=== PATIENT | female | born 1965 | race Caucasian/White ===

== ENCOUNTER → 2016-11-08 | Outpatient (CLI) | payer MEDICARE, MEDICAID ==
[~2016-11-08] MED LIST: ALPR-475 PO; ASCO10004 PO; B50 COMPLEX PO; CALC1CAP8 PO; CARI350T PO; CHOL500015 PO; DOCU100T6 PO; LACT1CAP40 PO; LAMO200T PO; LEVE750T8 PO; METH5TAB2 PO; MULT-750 PO; OLAN20TA7 PO; OXYC-229 PO; RED600TA PO; ZOLP-413 PO; [UNRECOGNIZED DRUG - OTHER] PO
== END | disposition home or self-care (01) ==
LOC: STAR 13:04
PROVIDERS: ATTEND Urology
DX: Z01.818 Encounter for other preprocedural examination (principal); C64.2 Malignant neoplasm of left kidney, except renal pelvis; F41.9 Anxiety disorder, unspecified; F32.9 Major depressive disorder, single episode, unspecified
CPT/HCPCS: 81003; 87086; 93005

== ENCOUNTER 2016-11-16 09:03 | Inpatient (IN) | payer MEDICARE, MEDICAID ==
[2016-11-08 13:28] VITALS: BP 108/75
[~2016-11-16] VITALS: Ht 165.1 cm; Wt 63.7 kg
[2016-11-16] MEDS ORDERED: LACTATED RINGERS 1,000 ML IV SCH ×2 (09:39→09:59)
[2016-11-16] MEDS ORDERED: LIDOCAINE 1%, 2ML SQ PRN (10:00)
[2016-11-16] MEDS ORDERED: LIDOCAINE 1%, 2ML ONE (10:05)
[2016-11-16] MEDS ORDERED: EPINEPHRINE 1 MG/ML, 1ML ONE (10:05)
[2016-11-16] MEDS ORDERED: BUPIVACAINE/PF 0.25% ONE (10:05)
[2016-11-16] MEDS ORDERED: THROMBIN 5,000 UNIT VIAL TP ONE (10:06)
[2016-11-16] MEDS ORDERED: CEFAZOLIN 1,000 MG ONE (10:18)
[2016-11-16] MEDS ORDERED: PROPOFOL 10 MG/ML, 20ML ONE (10:18)
[2016-11-16] MEDS ORDERED: DEXAMETHASONE 4 MG/ML, 1ML ONE (10:18)
[2016-11-16] MEDS ORDERED: SUCCINYLCHOLINE 20 MG/ML, 10ML ONE (10:18)
[2016-11-16] MEDS ORDERED: GLYCOPYRROLATE 0.2MG/1ML ONE (10:18)
[2016-11-16] MEDS ORDERED: NEOSTIGMINE 1 MG/ML, 10ML ONE (10:18)
[2016-11-16] MEDS ORDERED: ROCURONIUM 10 MG/ML ONE (10:18)
[2016-11-16] MEDS ORDERED: FENTANYL PF 250 MCG/5ML ONE ×2 (10:23→14:49)
[2016-11-16] MEDS ORDERED: MIDAZOLAM 1 MG/ML, 2ML ONE (10:24)
[2016-11-16] MEDS ORDERED: hydrALAzine 20 MG/ML, 1ML IV PRN (13:00)
[2016-11-16] MEDS ORDERED: OXYcodone 5 MG/5 ML ORAL.SOL UDC PO PRN (13:00)
[2016-11-16] MEDS ORDERED: LABETALOL 5MG/ML, 20ML IV PRN (13:00)
[2016-11-16] MEDS ORDERED: METOCLOPRAMIDE 5 MG/ML, 2ML IV PRN (13:00)
[2016-11-16] MEDS ORDERED: ONDANSETRON 2MG/ML, 2ML IVPush PRN (13:00)
[2016-11-16] MEDS ORDERED: ACETAMINOPHEN 325 MG TABLET PO PRN (13:00)
[2016-11-16] MEDS ORDERED: FENTANYL PF 100 MCG/2ML ONE ×2 (15:11→16:03)
[2016-11-16] MEDS ORDERED: HYDROmorphone 1 MG/ML, 1ML ONE (15:11)
[2016-11-16] MEDS: HYDROmorphone 1 MG/ML, 1ML IV PRN ×2 (15:23→15:33)
[2016-11-16] MEDS: FENTANYL PF 100 MCG/2ML IV PRN ×4 (15:48→16:15)
[2016-11-16] MEDS ORDERED: ACETAMINOPHEN 650 MG/20.3 ML UDC ONE (16:03)
[2016-11-16] MEDS ORDERED: OXYcodone 5 MG/5 ML ORAL.SOL UDC ONE (16:03)
[2016-11-16] MEDS ORDERED: ONDANSETRON 2MG/ML, 2ML IV PRN (17:30)
[2016-11-16] MEDS ORDERED: SODIUM CHLORIDE 0.9% 500 ML IV SCH (17:30)
[2016-11-16] MEDS: D5%-0.45% NACL 1,000 ML IV SCH (18:19)
[2016-11-16 19:24] VITALS: BP 126/80
[2016-11-16] MEDS: CEFAZOLIN PMX 1GM/50ML 50 ML IV SCH (19:46)
[2016-11-16] MEDS: ZOLPIDEM 5MG TABLET PO SCH (21:00)
[2016-11-16] MEDS: LACTOBACILLUS CHEW TABLET PO SCH (22:27)
[2016-11-16] MEDS: OLANZAPINE 10 MG TABLET PO SCH (22:27)
[2016-11-16] MEDS: LAMOTRIGINE 200 MG TABLET PO SCH (22:28)
[2016-11-16] MEDS: LEVETIRACETAM 500 MG TABLET PO SCH (22:28)
[2016-11-16] MEDS: METHADONE 5 MG TABLET PO SCH (22:28)
[2016-11-16] MEDS: CARISOPRODOL 350 MG TABLET PO SCH (22:28)
[2016-11-16] MEDS: FAMOTIDINE 20 MG/2 ML IVPush SCH (22:29)
[2016-11-16 23:12] VITALS: BP 116/78
[2016-11-17] MEDS: D5%-0.45% NACL 1,000 ML IV SCH ×2 (02:57→11:36)
[2016-11-17] MEDS: CEFAZOLIN PMX 1GM/50ML 50 ML IV SCH (02:58)
[2016-11-17 03:05] VITALS: BP 115/73
[2016-11-17] MEDS ORDERED: CEFAZOLIN 1,000 MG in SODIUM CHLORIDE 0.9% 50 ML IV SCH (03:30)
[2016-11-17 06:21] LABS: HEMATOCRIT 33.7 % (34.6-47.8); HEMOGLOBIN 11.4 g/dL (11.7-16.4); WHITE BLOOD COUNT 4.7 x10^3/uL (3.4-10)
[2016-11-17 06:33] LABS: BLOOD UREA NITROGEN 4 mg/dL (7-18)
[2016-11-17 07:22] VITALS: BP 104/69
[2016-11-17] MEDS: CARISOPRODOL 350 MG TABLET PO SCH ×3 (08:22→21:47)
[2016-11-17] MEDS: DOCUSATE 100 MG CAPSULE PO SCH (08:22)
[2016-11-17] MEDS: LAMOTRIGINE 200 MG TABLET PO SCH ×2 (08:22→21:45)
[2016-11-17] MEDS: LEVETIRACETAM 500 MG TABLET PO SCH ×2 (08:22→21:47)
[2016-11-17] MEDS: LACTOBACILLUS CHEW TABLET PO SCH ×2 (08:23→21:46)
[2016-11-17] MEDS: FAMOTIDINE 20 MG/2 ML IVPush SCH ×2 (08:23→21:45)
[2016-11-17] MEDS: METHADONE 5 MG TABLET PO SCH ×2 (08:28→21:46)
[2016-11-17 12:48] VITALS: BP 112/68
[2016-11-17] MEDS: POTASSIUM CHLORIDE 20 MEQ in D5%-0.45% NACL 1,000 ML IV SCH ×2 (14:53→23:28)
[2016-11-17 19:12] VITALS: BP 118/81
[2016-11-17] MEDS: ZOLPIDEM 5MG TABLET PO SCH (21:46)
[2016-11-17] MEDS: OLANZAPINE 10 MG TABLET PO SCH (21:47)
[2016-11-18 00:15] VITALS: BP 116/79
[2016-11-18 05:53] LABS: BLOOD UREA NITROGEN < 1 mg/dL (7-18)
[2016-11-18 07:21] VITALS: BP 124/82
[2016-11-18] MEDS: POTASSIUM CHLORIDE 20 MEQ in D5%-0.45% NACL 1,000 ML IV SCH ×2 (08:09→16:14)
[2016-11-18] MEDS: LEVETIRACETAM 500 MG TABLET PO SCH ×2 (09:16→20:12)
[2016-11-18] MEDS: DOCUSATE 100 MG CAPSULE PO SCH (09:16)
[2016-11-18] MEDS: LAMOTRIGINE 200 MG TABLET PO SCH ×2 (09:16→20:11)
[2016-11-18] MEDS: FAMOTIDINE 20 MG/2 ML IVPush SCH ×2 (09:16→20:12)
[2016-11-18] MEDS: CARISOPRODOL 350 MG TABLET PO SCH ×3 (09:16→20:11)
[2016-11-18] MEDS: LACTOBACILLUS CHEW TABLET PO SCH ×2 (09:16→20:11)
[2016-11-18] MEDS: METHADONE 5 MG TABLET PO SCH ×2 (09:16→20:21)
[2016-11-18] MEDS: OXYcodone/APAP 10/325MG TABLET PO PRN ×2 (10:02→14:32)
[2016-11-18 14:20] VITALS: BP 103/61
[2016-11-18] MEDS ORDERED: OXYcodone/APAP 5/325MG TABLET PO PRN (17:00)
[2016-11-18] MEDS: OXYcodone/APAP 5/325MG TABLET PO PRN ×2 (18:32→22:29)
[2016-11-18 18:43] VITALS: BP 117/69
[2016-11-18] MEDS: ZOLPIDEM 5MG TABLET PO SCH (20:11)
[2016-11-18] MEDS: OLANZAPINE 10 MG TABLET PO SCH (20:11)
[2016-11-19] MEDS: POTASSIUM CHLORIDE 20 MEQ in D5%-0.45% NACL 1,000 ML IV SCH ×2 (00:13→09:22)
[2016-11-19 01:10] VITALS: BP 95/60
[2016-11-19] MEDS: OXYcodone/APAP 5/325MG TABLET PO PRN ×2 (02:34→07:32)
[2016-11-19 06:27] LABS: HEMATOCRIT 29.6 % (34.6-47.8); WHITE BLOOD COUNT 3.8 x10^3/uL (3.4-10)
[2016-11-19 06:38] LABS: BLOOD UREA NITROGEN 3 mg/dL (7-18)
[2016-11-19 07:19] VITALS: BP 96/71
[2016-11-19] MEDS: FAMOTIDINE 20 MG/2 ML IVPush SCH (08:58)
[2016-11-19] MEDS: CARISOPRODOL 350 MG TABLET PO SCH (08:59)
[2016-11-19] MEDS: LAMOTRIGINE 200 MG TABLET PO SCH (08:59)
[2016-11-19] MEDS: LEVETIRACETAM 500 MG TABLET PO SCH (08:59)
[2016-11-19] MEDS: DOCUSATE 100 MG CAPSULE PO SCH (08:59)
[2016-11-19] MEDS: METHADONE 5 MG TABLET PO SCH (09:20)
[2016-11-19] MEDS: LACTOBACILLUS CHEW TABLET PO SCH (09:20)
[2016-11-19 10:41] VITALS: BP 107/68
[2016-11-19] MEDS ORDERED: OXYC-229 PO (11:27)
[2016-11-19] MEDS ORDERED: METH5TAB2 PO (11:27)
== END 2016-11-19 11:46 | disposition home or self-care (01) | DRG 657 ==
LOC: ORIP 09:03 → 4NOR 17:15 → DCLOUNGE 11-19 11:20
PROVIDERS: ADMIT Urology; ATTEND Urology
PROC: 8E0W4CZ Robotic Assisted Procedure of Trunk Region, Percutaneous Endoscopic Approach (ICD-10-PCS; 2016-11-16)
PROC: 0TT14ZZ Resection of Left Kidney, Percutaneous Endoscopic Approach (ICD-10-PCS; principal; 2016-11-16 12:00)
DX: C64.2 Malignant neoplasm of left kidney, except renal pelvis (principal); E87.1 Hypo-osmolality and hyponatremia; F41.9 Anxiety disorder, unspecified; F32.9 Major depressive disorder, single episode, unspecified; Z87.891 Personal history of nicotine dependence
CPT/HCPCS: 36415; 71010; 80048; 85025; 86850; 86900; 88307; 88342; J0171; J0690; J1100; J1170; J2250; J2270; J2704; J2710; J3010; J3480; J3490; C1760; G0461; J0330; S0028

== ENCOUNTER 2017-02-01 15:39 | Emergency (ER) | payer MEDICARE, MEDICAID ==
[~2017-02-01] VITALS: Ht 165.1 cm; Wt 65.5 kg
[~2017-02-01 15:39] MED LIST changes: -OXYC-229 PO; +OXYC-307 PO
[2017-02-01 16:51] LABS: HEMATOCRIT 37.5 % (34.6-47.8); HEMOGLOBIN 12.7 g/dL (11.7-16.4); WHITE BLOOD COUNT 3.6 x10^3/uL (3.4-10)
[2017-02-01 16:56] LABS: ASPARTATE AMINO TRANSFERASE 17 U/L (15-37); BLOOD UREA NITROGEN 8 mg/dL (7-18)
[2017-02-01] MEDS ORDERED: OXYcodone/APAP 10/325MG TABLET ONE (17:10)
[2017-02-01] MEDS ORDERED: OXYcodone/APAP 10/325MG TABLET PO ONE (17:30)
[2017-02-01] MEDS ORDERED: ONDANSETRON 2MG/ML, 2ML ONE (17:54)
[2017-02-01] MEDS ORDERED: FAMOTIDINE 20 MG/2 ML ONE (17:55)
[2017-02-01] MEDS ORDERED: ONDANSETRON 2MG/ML, 2ML IVPush ONE (18:30)
[2017-02-01] MEDS ORDERED: FAMOTIDINE 20 MG/2 ML IVPush ONE (18:30)
[2017-02-01 19:11] VITALS: BP 100/64
== END 2017-02-01 19:43 | disposition home or self-care (01) ==
LOC: ED 17:10
DX: R11.2 Nausea with vomiting, unspecified (principal); R19.7 Diarrhea, unspecified; G40.909 Epilepsy, unspecified, not intractable, without status epilepticus; Z85.9 Personal history of malignant neoplasm, unspecified; Z79.899 Other long term (current) drug therapy
CPT/HCPCS: 36415; 74176; 80053; 81001; 83690; 85025; 87086; 96374; 96375; 99285; J2405; S0028

== ENCOUNTER → 2017-05-10 | Outpatient (CLI) | payer MEDICARE, MEDICAID ==
[~2017-05-10] MED LIST changes: -LAMO200T PO; +LAMO200T2 PO
== END | disposition home or self-care (01) ==
LOC: CFH 13:26
PROVIDERS: ATTEND Nurse Practitioner Family
DX: K86.89 Other specified diseases of pancreas (principal); K83.8 Other specified diseases of biliary tract; Z90.5 Acquired absence of kidney; K76.89 Other specified diseases of liver
CPT/HCPCS: 74181

== ENCOUNTER 2017-05-24 18:13 | Inpatient (IN) | payer MEDICARE, MEDICAID ==
[~2017-05-24] VITALS: Ht 165.1 cm; Wt 59.9 kg
[2017-05-24] MEDS ORDERED: SODIUM CHLORIDE FLUSH 10ML SYR IVF ONE (19:00)
[2017-05-24] MEDS ORDERED: SODIUM CHLORIDE 0.9% 1,000ML IVBOLUS ONE (19:00)
[2017-05-24 19:16] LABS: ALANINE AMINOTRANSFERASE 18 U/L (12-78); ALBUMIN 3.2 g/dL (3.4-5.0); ANION GAP 11 mmol/L (5-15); CALCIUM 7.7 mg/dL (8.5-10.1); CHLORIDE 91 mmol/L (98-107); CREATININE 0.88 mg/dL (0.55-1.02)
[2017-05-24 19:18] LABS: ALKALINE PHOSPHATASE 87 U/L (45-117); BILIRUBIN,TOTAL 0.3 mg/dL (0.2-1.0); SALICYLATE LEVEL < 1.7 mg/dL (2.8-20.0); TOTAL PROTEIN 5.7 g/dL (6.4-8.2); TROPONIN I < 0.015 ng/mL (0.000-0.045)
[2017-05-24 19:19] LABS: ACETAMINOPHEN < 2 mcg/mL (10-30)
[2017-05-24 19:39] LABS: BASOPHILS # (AUTO) 0.01 x10^3/uL (0-0.1); BASOPHILS % (AUTO) 0 % (0-1); EOSINOPHILS # (AUTO) 0.03 x10^3/uL (0-0.4); EOSINOPHILS % (AUTO) 1 % (1-7); LYMPHOCYTES # (AUTO) 1.49 x10^3/uL (1-3.4); LYMPHOCYTES % (AUTO) 30 % (22-44); MD NO; MEAN CORPUSCULAR HEMOGLOBIN 33.4 pg (27.0-34.8); MEAN CORPUSCULAR VOLUME 98.2 fL (80-100); MEAN PLATELET VOLUME 8.3 fL (7.4-10.4); MONOCYTES # (AUTO) 0.26 x10^3/uL (0.2-0.8); MONOCYTES % (AUTO) 5 % (2-9); NEUTROPHILS # (AUTO) 3.15 x10^3/uL (1.8-6.8); NEUTROPHILS % (AUTO) 64 % (42-75); PLATELET COUNT 240 x10^3/uL (130-400); RED BLOOD COUNT 3.42 x10^6/uL (3.82-5.3); RED CELL DISTRIBUTION WIDTH 14.5 % (9.6-15.2)
[2017-05-24 19:43] LABS: MICROSCOPIC NOT IND
[2017-05-24 19:52] LABS: CULTURE INDICATED? NO
[2017-05-24 20:00] LABS: AMPHETAMINE SCREEN, URINE Negative (Negative); BARBITURATE SCREEN, URINE Negative (Negative); BENZODIAZEPINE SCREEN, URINE Negative (Negative); CANNABINOID SCREEN, URINE Negative (Negative); COCAINE SCREEN, URINE Negative (Negative); METHADONE SCREEN, URINE Negative (Negative); OPIATE SCREEN, URINE Negative (Negative)
[2017-05-24] MEDS: POTASSIUM CHLORIDE 20 MEQ TAB.ER.PRT PO ONE ×2 (20:24→20:42)
[2017-05-24] MEDS ORDERED: POTASSIUM CHLORIDE 20 MEQ TAB.ER.PRT ONE (20:38)
[2017-05-24] MEDS ORDERED: LEVETIRACETAM 100 MG/ML ORAL SOL PO SCH (21:00)
[2017-05-24] MEDS ORDERED: ACETAMINOPHEN 325 MG TABLET PO PRN (21:00)
[2017-05-24] MEDS ORDERED: DOCUSATE 100 MG CAPSULE PO PRN (21:00)
[2017-05-24] MEDS ORDERED: LEVETIRACETAM 500 MG TABLET PO SCH (21:00)
[2017-05-24] MEDS ORDERED: ENOXAPARIN 40 MG/0.4 ML SQ SCH (21:00)
[2017-05-24] MEDS ORDERED: ONDANSETRON 2MG/ML, 2ML IVPush PRN (21:00)
[2017-05-24] MEDS ORDERED: LEVETIRACETAM 1500 MG PO SCH (21:00)
[2017-05-24] MEDS ORDERED: POLYETHYLENE GLYCOL 17 GM PACKET PO PRN (21:00)
[2017-05-25] MEDS: NS + 20MEQ KCL 1,000 ML IV SCH ×2 (00:13→08:00)
[2017-05-25 00:16] VITALS: BP 100/68
[2017-05-25 01:21] VITALS: BP 102/69
[2017-05-25 05:08] LABS: ANION GAP 7 mmol/L (5-15); CALCIUM 7.8 mg/dL (8.5-10.1); CHLORIDE 104 mmol/L (98-107); CREATININE 0.74 mg/dL (0.55-1.02)
[2017-05-25 07:55] VITALS: BP 114/78
[2017-05-25] MEDS ORDERED: LEVETIRACETAM 500 MG TABLET PO SCH (09:00)
[2017-05-25] MEDS ORDERED: SENNA/DOCUSATE TABLET PO SCH (09:00)
[2017-05-25] MEDS ORDERED: MULTIVITAMIN 1 TABLET PO SCH (09:00)
== END 2017-05-25 08:56 | disposition home or self-care (01) | DRG 100 ==
LOC: ED 19:00 → EDIP 20:38 → 4NOR 22:20
PROVIDERS: ADMIT Family Medicine; ATTEND Family Medicine
PROC: 0T9B70Z Drainage of Bladder with Drainage Device, Via Natural or Artificial Opening (ICD-10-PCS; principal; 2017-05-24)
DX: G40.909 Epilepsy, unspecified, not intractable, without status epilepticus (principal); G92 Toxic encephalopathy; E44.0 Moderate protein-calorie malnutrition; F11.20 Opioid dependence, uncomplicated; E87.1 Hypo-osmolality and hyponatremia; R91.1 Solitary pulmonary nodule; E87.6 Hypokalemia; Z79.899 Other long term (current) drug therapy; Z85.528 Personal history of other malignant neoplasm of kidney; Z90.5 Acquired absence of kidney; Z68.22 Body mass index [BMI] 22.0-22.9, adult
CPT/HCPCS: 36415; 70450; 71045; 80048; 80053; 80307; 80329; 81003; 82140; 83605; 83690; 83735; 84484; 85025; 85730; 87040; 93005; 96360; J1650; J3480; G0480; J7030

== ENCOUNTER → 2017-06-11 | Outpatient (CLI) | payer MEDICARE, MEDICAID ==
[2017-06-11 14:29] LABS: BASOPHILS # (AUTO) 0.02 x10^3/uL (0-0.1); BASOPHILS % (AUTO) 0 % (0-1); EOSINOPHILS # (AUTO) 0.06 x10^3/uL (0-0.4); EOSINOPHILS % (AUTO) 1 % (1-7); LYMPHOCYTES # (AUTO) 1.59 x10^3/uL (1-3.4); LYMPHOCYTES % (AUTO) 27 % (22-44); MD NO; MEAN CORPUSCULAR HEMOGLOBIN 33.2 pg (27.0-34.8); MEAN CORPUSCULAR HGB CONC 33.4 g/dL (32.4-35.8); MEAN CORPUSCULAR VOLUME 99.4 fL (80-100); MEAN PLATELET VOLUME 8.4 fL (7.4-10.4); MONOCYTES # (AUTO) 0.25 x10^3/uL (0.2-0.8); MONOCYTES % (AUTO) 4 % (2-9); NEUTROPHILS # (AUTO) 4.01 x10^3/uL (1.8-6.8); NEUTROPHILS % (AUTO) 68 % (42-75); PLATELET COUNT 265 x10^3/uL (130-400); RED BLOOD COUNT 4.42 x10^6/uL (3.82-5.3); RED CELL DISTRIBUTION WIDTH 14.3 % (9.6-15.2)
[2017-06-11 14:41] LABS: ALANINE AMINOTRANSFERASE 19 U/L (12-78); ALBUMIN 4.2 g/dL (3.4-5.0); ANION GAP 9 mmol/L (5-15); CALCIUM 9.3 mg/dL (8.5-10.1); CHLORIDE 100 mmol/L (98-107)
[2017-06-11 14:43] LABS: ALKALINE PHOSPHATASE 125 U/L (45-117); BILIRUBIN,TOTAL 0.4 mg/dL (0.2-1.0); TOTAL PROTEIN 7.9 g/dL (6.4-8.2)
== END | disposition home or self-care (01) ==
LOC: RAD 13:15
PROVIDERS: ATTEND Urology
DX: R91.1 Solitary pulmonary nodule (principal); Z90.5 Acquired absence of kidney; Z85.828 Personal history of other malignant neoplasm of skin
CPT/HCPCS: 36415; 71046; 76770; 80053; 85025

== ENCOUNTER → 2017-07-11 | Outpatient (CLI) | payer MEDICARE, MEDICAID | END | disposition home or self-care (01) | LOC: CFH 14:30 | PROVIDERS: ATTEND Physician Assistant | DX: R91.8 Other nonspecific abnormal finding of lung field (principal); Z85.528 Personal history of other malignant neoplasm of kidney; Z90.5 Acquired absence of kidney | CPT/HCPCS: 71260 ==

== ENCOUNTER → 2017-08-28 | Outpatient (CLI) | payer MEDICARE, MEDICAID | END | disposition home or self-care (01) | LOC: PETCFH 08:14 | PROVIDERS: ATTEND Physician Assistant | DX: Z08 Encounter for follow-up examination after completed treatment for malignant neoplasm (principal); Z85.528 Personal history of other malignant neoplasm of kidney | CPT/HCPCS: 78306; A9503 ==

== ENCOUNTER → 2017-09-04 | Outpatient (CLI) | payer MEDICARE, MEDICAID | END | disposition home or self-care (01) | LOC: CFH 12:04 | PROVIDERS: ATTEND Family Medicine | DX: Z12.31 Encounter for screening mammogram for malignant neoplasm of breast (principal); Z80.3 Family history of malignant neoplasm of breast | CPT/HCPCS: 77067 ==

== ENCOUNTER → 2017-09-24 | Outpatient (CLI) | payer MEDICARE, MEDICAID | END | disposition home or self-care (01) | LOC: CFH 15:03 | PROVIDERS: ATTEND Physician Assistant | DX: M25.469 Effusion, unspecified knee (principal); Z85.528 Personal history of other malignant neoplasm of kidney | CPT/HCPCS: 82565 ==

== ENCOUNTER → 2017-12-11 | Outpatient (CLI) | payer MEDICARE, MEDICAID ==
[~2017-12-11] MED LIST changes: +OMNIPAQUE 350 MG/ML, 75ML BOTTLE ONE
[2017-12-11 13:29] LABS: CREATININE 1.18 mg/dL (0.55-1.02)
== END | disposition home or self-care (01) ==
LOC: RAD 12:33
PROVIDERS: ATTEND Physician Assistant
DX: J98.11 Atelectasis (principal); R91.1 Solitary pulmonary nodule; K86.1 Other chronic pancreatitis; Z90.5 Acquired absence of kidney; Z85.528 Personal history of other malignant neoplasm of kidney
CPT/HCPCS: 36415; 71260; 76770; 82565; Q9967

== ENCOUNTER 2018-01-14 17:07 | Emergency (ER) | payer MEDICARE, MEDICAID ==
[~2018-01-14] VITALS: Ht 160 cm; Wt 72.0 kg
[~2018-01-14 17:07] MED LIST changes: +ALPR0.254 PO; +CYCL5TAB PO; +LIPA1CAP45 PEG; +OMEP-110 PO; -OMNIPAQUE 350 MG/ML, 75ML BOTTLE ONE; +ONDA4TAB12 PO; +QUET100T PO; +QUET100T4 PO; +TIZA4CAP PO; +VITA400C43 PO
[2018-01-14 17:10] VITALS: BP 116/78
[2018-01-14 18:16] LABS: BASOPHILS # (AUTO) 0.07 x10^3/uL (0-0.1); BASOPHILS % (AUTO) 1 % (0-1); EOSINOPHILS # (AUTO) 0.16 x10^3/uL (0-0.4); EOSINOPHILS % (AUTO) 2 % (1-7); LYMPHOCYTES # (AUTO) 2.77 x10^3/uL (1-3.4); LYMPHOCYTES % (AUTO) 32 % (22-44); MD NO; MEAN CORPUSCULAR HEMOGLOBIN 32.6 pg (27.0-34.8); MEAN CORPUSCULAR HGB CONC 34.3 g/dL (32.4-35.8); MEAN CORPUSCULAR VOLUME 95.2 fL (80-100); MEAN PLATELET VOLUME 7.2 fL (7.4-10.4); MONOCYTES # (AUTO) 0.59 x10^3/uL (0.2-0.8); MONOCYTES % (AUTO) 7 % (2-9); NEUTROPHILS # (AUTO) 5.17 x10^3/uL (1.8-6.8); NEUTROPHILS % (AUTO) 59 % (42-75); PLATELET COUNT 550 x10^3/uL (130-400); RED BLOOD COUNT 4.41 x10^6/uL (3.82-5.3); RED CELL DISTRIBUTION WIDTH 13.4 % (9.6-15.2)
[2018-01-14 18:26] LABS: ALBUMIN 3.8 g/dL (3.4-5.0); ANION GAP 11 mmol/L (5-15); CALCIUM 8.6 mg/dL (8.5-10.1); CHLORIDE 91 mmol/L (98-107)
[2018-01-14 18:34] LABS: ALANINE AMINOTRANSFERASE 25 U/L (12-78); ALKALINE PHOSPHATASE 196 U/L (45-117); BILIRUBIN,TOTAL 0.6 mg/dL (0.2-1.0); CREATININE 0.86 mg/dL (0.55-1.02); TOTAL PROTEIN 7.1 g/dL (6.4-8.2)
[2018-01-14 18:49] LABS: MICROSCOPIC NOT IND
[2018-01-14] MEDS ORDERED: SODIUM CHLORIDE 0.9% 1,000 ML IV ONE (19:04)
[2018-01-14] MEDS ORDERED: POTASSIUM CHLORIDE 10% 40 MEQ/30 ML UDC PO ONE (19:30)
== END 2018-01-14 20:33 | disposition left against medical advice (07) ==
LOC: SUATTDRO 19:24 → ED 19:42
PROVIDERS: ATTEND Hospitalist
DX: E87.1 Hypo-osmolality and hyponatremia (principal); K81.9 Cholecystitis, unspecified; Z87.891 Personal history of nicotine dependence; Z85.9 Personal history of malignant neoplasm, unspecified; Z90.49 Acquired absence of other specified parts of digestive tract
CPT/HCPCS: 36415; 71045; 80053; 81003; 83690; 85025; 93005; 99285

== ENCOUNTER → 2018-06-02 | Outpatient (CLI) | payer MEDICARE, MEDICAID ==
[~2018-06-02] MED LIST changes: +OMNIPAQUE 350 MG/ML, 100ML BOTTLE ONE
== END | disposition home or self-care (01) ==
LOC: CFH 08:58
PROVIDERS: ATTEND Specialist
DX: S32.019A Unspecified fracture of first lumbar vertebra, initial encounter for closed fracture (principal); R91.1 Solitary pulmonary nodule; K85.90 Acute pancreatitis without necrosis or infection, unspecified; X58.XXXA Exposure to other specified factors, initial encounter; Y93.89 Activity, other specified; Y92.89 Other specified places as the place of occurrence of the external cause; Y99.8 Other external cause status; K86.89 Other specified diseases of pancreas; Z90.5 Acquired absence of kidney
CPT/HCPCS: 71260; 74160; Q9967; 82565